=== PATIENT | female | born 1945 | race Caucasian/White ===

== ENCOUNTER 2016-12-08 08:31 | Emergency (ER) | payer BC ==
[~2016-12-08] VITALS: Ht 157.5 cm; Wt 78.2 kg
[2016-12-08 08:33] VITALS: TEMP 36.5; Ht 157.5 cm; Wt 78.2 kg
[2016-12-08] MEDS ORDERED: KETOROLAC TROMETHAMINE 30 MG/ML VIAL IV STA (08:58)
[2016-12-08 09:18] LABS: BASO % 0.8 %; BASO ABS # 0.05 K/uL (0-0.2); COMPLETE YES; EOS % 3.6 %; HEMATOCRIT 42.6 % (37-47); LYMPH % 25.2 %; LYMPH ABS # 1.56 K/uL (1.2-3.4); MEAN CELL VOLUME 90.8 fL (80-100); MEAN CORPUSCULAR HEMOGLOBIN 30.7 pg (25-34); MEAN CORPUSCULAR HGB CONC 33.8 g/dl (32-36); MEAN PLATELET VOLUME 10.4 fL (7.4-10.4); NEUT % 63.4 %; PLATELET COUNT 213 K/uL (130-400); RED BLOOD COUNT 4.69 M/uL (4.2-5.4); WHITE BLOOD COUNT 6.18 K/uL (4.8-10.8)
[2016-12-08 09:39] LABS: BUN/CREATININE RATIO 15.2 (10-20); CALCIUM 9.5 mg/dl (8.5-10.1); CREATININE 0.88 mg/dl (0.60-1.20); POTASSIUM 4.5 mmol/L (3.5-5.1)
--- NOTE | 2016-12-08 09:47 | DIAGNOSTIC IMAGING REPORT ---
TWO VIEW CHEST CLINICAL HISTORY: Chronic cough. FINDINGS: PA and lateral chest radiographs are obtained. No prior studies are available for comparison at the time of dictation. The cardiomediastinal silhouette is unremarkable. The lungs and pleural spaces are clear. There is no pneumothorax. The skeletal structures are osteopenic. The bony thorax appears intact. Calcified gallstones are seen in the right upper quadrant. IMPRESSION: 1. No active disease in the chest. 2. Cholelithiasis. Electronically signed by: Yaya Chi M.D. 12/08/2016 9:45 AM Dictated Date/Time: 12/08/2016 9:44 AM
[2016-12-08] MEDS ORDERED: MoRPHine SULFATE 10 MG/ML CARP/VIAL IV STA (10:01)
[2016-12-08] MEDS ORDERED: ONDANSETRON INJ 2 MG/ML 2 ML VIAL IV STA (10:01)
--- NOTE | 2016-12-08 10:45 | DIAGNOSTIC IMAGING REPORT ---
ULTRASOUND RIGHT UPPER QUADRANT ABDOMEN CLINICAL HISTORY: Right upper quadrant abdominal pain. COMPARISON STUDY: No priors. TECHNIQUE: Real-time, grayscale, and color flow sonography of the right upper quadrant of the abdomen was performed. Images are reviewed in the transverse and longitudinal planes. FINDINGS: Liver: The liver is normal in size and echotexture. There is no intrahepatic biliary ductal dilatation. The main portal vein is patent. Gallbladder: There are calcified shadowing gallstones which measure up to 1.5 cm. There is no gallbladder wall thickening or pericholecystic fluid. A sonographic Lee's sign is reportedly absent. The common bile duct measures up to 0.4 cm in diameter. Pancreas: Visualized portions of the pancreatic head and body are normal in appearance. The splenic vein is patent. Right kidney: Survey images of the right kidney demonstrate mild cortical atrophy.. There is no hydronephrosis. Ascites: None. IMPRESSION: Cholelithiasis without sonographic evidence of acute cholecystitis. Electronically signed by: Yaya Chi M.D. 12/08/2016 10:43 AM Dictated Date/Time: 12/08/2016 10:42 AM
[2016-12-08] MEDS ORDERED: HYDR-5688 PO (11:05)
[2016-12-08] MEDS ORDERED: ONDA4TAB10 SL (11:05)
--- NOTE | 2016-12-08 11:07 | EMERGENCY ROOM VISIT NOTE ---
History First contact with patient: 08:52 Chief Complaint: BACK PAIN Stated Complaint: PAIN FROM UPPERBACK TO RIBS History of Present Illness The patient is a 71 year old female who presents to the Emergency Room with complaints of right upper quadrant pain which radiates around to her back and up to her shoulder blade. She states the pain started yesterday. The patient denies any nausea vomiting or diarrhea. The patient also admits that she has been coughing for the past several months. She has a history of pneumonia in the past. She has not had a fever, head congestion, ear pain, sore throat. The patient denies any pain in the anterior chest or any shortness of breath. The patient does not smoke. She is not on any hormones. The patient does not have any history of clotting disorder. The patient denies any recent travel or any recent leg pain. Review of Systems 10 system review was performed and was negative unless stated otherwise history of present illness. Past Medical/Surgical History Pneumonia, 2 C-sections Social History Smoking Status: Never Smoker Smokeless Tobacco Use: No Alcohol Use: none Drug Use: none Marital Status: Housing Status: lives with family Occupation Status: retired Current/Historical Medications No Active Prescriptions or Reported Meds Allergies Coded Allergies: Sulfamethoxazole w/Trimethoprim (Unverified Allergy, Unknown, "MADE ME VERY SICK LIKE HIGH FEVER", 12/08/16) Physical Exam Vital Signs Date Time Temp Pulse Resp B/P Pulse Ox O2 Delivery O2 Flow Rate FiO2 12/08/16 10:10 61 20 140/64 99 Room Air 12/08/16 08:33 36.5 80 18 179/91 99 Room Air Physical Exam GENERAL: 71-year-old white female appears in no acute distress. MENTAL Status: Alert and oriented 3. EARS: Canals clear. TMs good light reflex. NOSE: Nasal mucosa without erythema or engorgement. PHARYNX: No erythema or edema noted. Airway is adequate NECK: Supple, no lymphadenopathy noted. No carotid bruits noted. LUNGS: Clear auscultation without wheezes rales or rhonchi. CARDIAC: Regular rate and rhythm without murmur. Pulses is full and equal throughout. CHEST WALL: Nontender to palpation throughout. BACK: No CVA tenderness noted. ABDOMEN: Positive bowel sounds all 4 quadrants. Soft, mild tenderness palpation in the right upper quadrant otherwise nontender without organomegaly or masses. EXTREMITIES: No cyanosis or edema noted. Nontender. No Palpable Cords. Negative Homans Bilaterally. Medical Decision & Procedures ER Provider Diagnostic Interpretation: TWO VIEW CHEST CLINICAL HISTORY: Chronic cough. FINDINGS: PA and lateral chest radiographs are obtained. No prior studies are available for comparison at the time of dictation. The cardiomediastinal silhouette is unremarkable. The lungs and pleural spaces are clear. There is no pneumothorax. The skeletal structures are osteopenic. The bony thorax appears intact. Calcified gallstones are seen in the right upper quadrant. IMPRESSION: 1. No active disease in the chest. 2. Cholelithiasis. Electronically signed by: Yaya Chi M.D. 12/08/2016 9:45 AM ULTRASOUND RIGHT UPPER QUADRANT ABDOMEN CLINICAL HISTORY: Right upper quadrant abdominal pain. COMPARISON STUDY: No priors. TECHNIQUE: Real-time, grayscale, and color flow sonography of the right upper quadrant of the abdomen was performed. Images are reviewed in the transverse and longitudinal planes. FINDINGS: Liver: The liver is normal in size and echotexture. There is no intrahepatic biliary ductal dilatation. The main portal vein is patent. Gallbladder: There are calcified shadowing gallstones which measure up to 1.5 cm. There is no gallbladder wall thickening or pericholecystic fluid. A sonographic Lee's sign is reportedly absent. The common bile duct measures up to 0.4 cm in diameter. Pancreas: Visualized portions of the pancreatic head and body are normal in appearance. The splenic vein is patent. Right kidney: Survey images of the right kidney demonstrate mild cortical atrophy.. There is no hydronephrosis. Ascites: None. IMPRESSION: Cholelithiasis without sonographic evidence of acute cholecystitis. Electronically signed by: Yaya Chi M.D. 12/08/2016 10:43 AM Dictated Date/Time: 12/08/2016 10:42 AM Laboratory Results 12/08/16 09:05 Red Blood Count 4.69, Mean Corpuscular Volume 90.8, Mean Corpuscular Hemoglobin 30.7, Mean Corpuscular Hemoglobin Concent 33.8, Mean Platelet Volume 10.4, Neutrophils (%) (Auto) 63.4, Lymphocytes (%) (Auto) 25.2, Monocytes (%) (Auto) 7.0, Eosinophils (%) (Auto) 3.6, Basophils (%) (Auto) 0.8, Neutrophils # (Auto) 3.92, Lymphocytes # (Auto) 1.56, Monocytes # (Auto) 0.43, Eosinophils # (Auto) 0.22, Basophils # (Auto) 0.05 12/08/16 09:05 Test 12/08/16 09:05 White Blood Count 6.18 K/uL (4.8-10.8) Red Blood Count 4.69 M/uL (4.2-5.4) Hemoglobin 14.4 g/dL (12.0-16.0) Hematocrit 42.6 % (37-47) Mean Corpuscular Volume 90.8 fL (80-100) Mean Corpuscular Hemoglobin 30.7 pg (25-34) Mean Corpuscular Hemoglobin Concent 33.8 g/dl (32-36) Platelet Count 213 K/uL (130-400) Mean Platelet Volume 10.4 fL (7.4-10.4) Neutrophils (%) (Auto) 63.4 % Lymphocytes (%) (Auto) 25.2 % Monocytes (%) (Auto) 7.0 % Eosinophils (%) (Auto) 3.6 % Basophils (%) (Auto) 0.8 % Neutrophils # (Auto) 3.92 K/uL (1.4-6.5) Lymphocytes # (Auto) 1.56 K/uL (1.2-3.4) Monocytes # (Auto) 0.43 K/uL (0.11-0.59) Eosinophils # (Auto) 0.22 K/uL (0-0.5) Basophils # (Auto) 0.05 K/uL (0-0.2) RDW Standard Deviation 45.0 fL (36.4-46.3) RDW Coefficient of Variation 13.7 % (11.5-14.5) Immature Granulocyte % (Auto) 0.0 % Immature Granulocyte # (Auto) 0.00 K/uL (0.00-0.02) Anion Gap 10.0 mmol/L (3-11) Est Creatinine Clear Calc Drug Dose 58.4 ml/min Estimated GFR () 77.7 Estimated GFR (Non- 67.0 BUN/Creatinine Ratio 15.2 (10-20) Calcium Level 9.5 mg/dl (8.5-10.1) Total Bilirubin 0.6 mg/dl (0.2-1) Direct Bilirubin 0.1 mg/dl (0-0.2) Aspartate Amino Transf (AST/SGOT) 20 U/L (15-37) Alanine Aminotransferase (ALT/SGPT) 27 U/L (12-78) Alkaline Phosphatase 66 U/L (45-117) Total Protein 7.5 gm/dl (6.4-8.2) Albumin 3.7 gm/dl (3.4-5.0) Lipase 102 U/L (73-393) Medications Administered Medications (Trade) Dose Ordered Sig/Bull Route Start Time Stop Time Status Last Admin Dose Admin Ketorolac Tromethamine (Toradol Inj) 30 mg NOW STAT IV 12/08/16 08:58 12/08/16 09:01 DC 12/08/16 09:11 30 MG Morphine Sulfate (MoRPHine SULFATE INJ) 6 mg NOW STAT IV 12/08/16 10:01 12/08/16 10:03 DC 12/08/16 10:13 6 MG Ondansetron HCl (Zofran Inj) 4 mg NOW STAT IV 12/08/16 10:01 12/08/16 10:03 DC 12/08/16 10:13 4 MG ED Course The patient was evaluated. IV access was obtained. The patient was given Toradol 30 mg IV for pain. CBC and differential, renal profile, LFTs and lipase levels were ordered. Labs are reviewed and were unremarkable. Chest x- ray was ordered and interpreted by the radiologist and myself as above without any acute findings. Ultrasound of the gallbladder was ordered and interpreted by the radiologist as above with findings consistent with cholelithiasis without acute cholecystitis. The patient was informed of all findings she was reevaluated and was feeling better. The patient was independently evaluated by Dr. Vuong who agreed with treatment plan. The patient was discharged home in stable condition.. Medical Decision Differential diagnosis include pneumonia, bronchitis, pleurisy, PE, acute cholecystitis, cholelithiasis Impression Primary Impression: Cholelithiasis Additional Impression: Right upper quadrant pain Departure Information Dispostion Home / Self-Care Condition GOOD Prescriptions Ondasetron Odt (ZOFRAN ODT) 4 Mg Tab 4 MG SL Q6H for Nausea, #10 TAB Prov: Johana Carrasco, MARCE 12/08/16 Hydrocodone/Acetaminophen 5MG/325MG ([place] 5MG/325MG) Tab 1-2 TABLET PO Q6 Y for Pain, #20 TAB For Initial Treatment Prov: Johana Carrasco PA-C 12/08/16 Referrals Yaya Ho M.D. (PCP) Forms HOME CARE DOCUMENTATION FORM, IMPORTANT VISIT INFORMATION Patient Instructions [facility] Additional Instructions If you experience any severe abdominal pain, uncontrolled nausea vomiting, fever return to ER immediately. Ibuprofen 600 mg every 6 hours with food for pain. Take [place] as needed for more severe pain. Do not drive while taking the [place]. Take Zofran as needed for nausea. Follow-up with your family physician for referral to surgery for consult. Problem Qualifiers
[2016-12-08 11:14] VITALS: BP 171/71; PULSE 58; O2SAT 98
--- NOTE | 2016-12-08 15:47 | EMERGENCY ROOM VISIT NOTE ---
ED Visit Note First contact with patient: 08:52 71 yr old female arrives with acute RUQ/flank pain which has resolved by my evaluation. I have personally evaluated and examined this patient. I agree with assessment and plan of Micki Carrasco PA-C. Would suspect GB related though passed kidney stone possibility. No SOB nor chest pain and with no tachycardia nor PE risk factors she does not require CT PE nor dimer at this time. No evidence of dissection.
[2017-03-05] MEDS ORDERED: MULT-506 PO (09:47)
[2017-03-05] MEDS ORDERED: CALC-51 PO (09:47)
[2017-03-05] MEDS ORDERED: BIOFTAB23 PO (09:47)
[2017-08-02] MEDS ORDERED: TRMCR515 TOP (10:37)
[2017-08-02] MEDS ORDERED: ASCO1CAP3 PO (10:38)
== END 2016-12-08 11:17 | disposition home or self-care (01) ==
LOC: C.EDB 08:33
DX: K80.20 Calculus of gallbladder without cholecystitis without obstruction (principal)

== ENCOUNTER → 2016-12-17 | Outpatient (CLI) | payer BC ==
[~2016-12-17] MED LIST: ASCO1CAP3 PO; BIOFTAB23 PO; CALC-51 PO; HYDR-5688 PO; MULT-506 PO; ONDA4TAB10 SL; TRMCR515 TOP
== END | disposition home or self-care (01) ==
LOC: C.PATHSPEC 16:25
PROVIDERS: ATTEND Obstetrics & Gynecology
DX: N95.0 Postmenopausal bleeding (principal); C54.1 Malignant neoplasm of endometrium

== ENCOUNTER → 2016-12-18 | Outpatient (CLI) | payer BC ==
--- NOTE | 2016-12-18 13:56 | DIAGNOSTIC IMAGING REPORT ---
NUCLEAR MEDICINE HEPATOBILIARY SCAN HISTORY: Pain. Nausea. R10.11 Abdominal pain, acute, right upper quadrant COMPARISON: None. TECHNIQUE: Immediately following the intravenous administration of 5.5 mCi Tc-99m Choletec, dynamic anterior abdominal imaging was performed. FINDINGS: Uniform hepatic tracer accumulation is shown. Prompt intrahepatic biliary excretion is seen. The gallbladder, common bile duct, and small bowel are all visualized by 20 minutes. This appearance represents the normal sequence of biliary excretion. IMPRESSION: No evidence for cystic duct obstruction. Normal study Electronically signed by: Miguel Carrasco M.D. 12/18/2016 1:55 PM Dictated Date/Time: 12/18/2016 1:54 PM
== END | disposition home or self-care (01) ==
LOC: C.NUCL 12:13
PROVIDERS: ATTEND Family Medicine
DX: R10.11 Right upper quadrant pain (principal)

== ENCOUNTER → 2017-01-24 | Outpatient (CLI) | payer BC ==
[2017-01-24 14:09] LABS: CHOLESTEROL/HDL RATIO 3.9
== END | disposition home or self-care (01) ==
LOC: C.LABMFLN 07:54
PROVIDERS: ATTEND Family Medicine
DX: E78.00 Pure hypercholesterolemia, unspecified (principal); R63.5 Abnormal weight gain

== ENCOUNTER → 2017-04-30 | Outpatient (CLI) | payer BC ==
[~2017-04-30] MED LIST changes: -ONDA4TAB10 SL
--- NOTE | 2017-04-30 15:51 | Radiation Oncology Follow-Up ---
Radiation Oncology Follow-Up Date of Visit Apr 30, 2017. (Anjana Edmondson PA-C) Reason For Visit One-month follow-up and cancer survivorship care plan (Anjana Edmondson PA-C) Radiation Completion Date Vag HDR x 5 03/25/17 (Anjana Edmondson PA-C) Diagnosis (1) Endometrial adenocarcinoma Status: Resolved Onset Date: 12/17/2016 Stage: l (FIGO IB, grade 1) Permanent Comment: Menopause at age 54 Postmenopausal vaginal bleeding November 2016 Status post ultrasound followed by endometrial biopsy 12/17/2016 (Dr. Marianela Esparza) Endometrioid adenocarcinoma, FIGO grade 1 of 3 Status post robotic-assisted laparoscopic hysterectomy; bilateral salpingo- oophorectomy; bilateral pelvic lymphadenectomy; bilateral periaortic lymph node sampling 01/10/2017 (Dr. Stefan Fregoso) Staged pT1b pN0 Stage IB Status post completion of radiation therapy 03/25/2017. She received 3000 cGy. 5 HDR treatments. Last Edited By: Anjana Edmondson on March 29, 2017 09:32 ( Anjana Edmondson PA-C) History of Present Illness Ms. Bassett is a 71-year-old female who presented with postmenopausal bleeding in November 2016. The patient was seen by Dr. Marianela Esparza from gynecology. The patient did have a pelvic ultrasound which did show a thickened endometrial stripe of 13 mm. The patient did have a endometrial biopsy completed on 2016 which revealed endometrioid adenocarcinoma FIGO grade 1. The patient was referred to Dr. Stefan Fregoso who recommended a total abdominal hysterectomy and bilateral salpingo-oophorectomy with pelvic lymph node sampling. The patient underwent a JAMES/BSO on 01/10/2017 which revealed FIGO grade 1 endometrioid adenocarcinoma with no evidence of lymphovascular space invasion. The tumor measured 2 cm in the greatest dimension and it invaded 7/10 mm of the myometrium making it stage FIGO IB. Pathology revealed no evidence of cervical stromal invasion, involvement of the fallopian tubes or ovaries. 13 pelvic lymph nodes were examined and all of them were negative. Genetic testing from the pathology specimen revealed loss of nuclear expression for MLH1 and PMS2 however MSH2/MSH6 were intact. Dr. Fregoso has recommended consideration of adjuvant radiation therapy. We are now seeing the patient in consultation. Overall, the patient is doing relatively well. She does have some vaginal discharge but no vaginal bleeding. She has no significant discomfort. She did well with surgery overall. She has no complaints. She underwent treatment with 5 HDR treatments. These were 600 cGy each. Total 3000 cGy. Treatment completed 03/25/2017. (Anjana Edmondson PA-C) Interim History She's been doing well over this past month. She denies any vaginal discharge or irritation. She's had no change in bowel habits or urination. She has had follow-up examinations by Dr. Fregoso. She wants to get back to exercising on a regular basis. She is a member of [employer]. She requested to return to full exercise capacity at their program. She is not using the vaginal dilator and she is currently not sexually active. She stated that her had treatment for prostate cancer and therefore they are no longer sexually active. (Anjana Edmondson PA-C) Allergies Coded Allergies: Sulfamethoxazole w/Trimethoprim (Unverified Allergy, Unknown, "MADE ME VERY SICK LIKE HIGH FEVER", 12/08/16) Home Medications Scheduled Bioflavonoid Products (Vitamin C Plus), 1 TAB PO DAILY Calcium Carbonate-Vitamin D (Calcium), 1 TAB PO HS Multivitamin (Multivitamin), 1 TAB PO DAILY Review of Systems Gastrointestinal: Symptoms: WNL Oral: Symptoms: No Problems Respiratory: Symptoms: WNL Urinary: Symptoms: WNL Skin: Symptoms: No Problems Additional Notes: She completed a distress management report and answered "no" to all questions. (Anjana Edmondson PA-C) Physical Exam Fatigue: None General Appearance: no apparent distress Eyes: normal inspection, EOMI ENT: normal ENT inspection, hearing grossly normal Neck: no adenopathy, thyroid normal Respiratory/Chest: lungs clear, no respiratory distress, no accessory muscle use Cardiovascular: regular rate, rhythm, no gallop, no murmur Abdomen: non tender, soft Genitourinary - Female: Performed by Dr. Lemos. There are mild post radiation changes at the apex. There is no telangiectasia. There are no palpable or visible lesions in the vagina. There is mild narrowing at the introitus. There is minimal foreshortening. There is no tenderness on the bimanual examination. (Anjana Edmondson PA-C) Assessment & Plan Plan: Continue regular follow-up with Dr. Fregoso as well as her family physician. She is going to be seeing Itzel Whitaker hotbed lever operator at Dr. Fregoso's office at her next visit. We discussed use of a vaginal dilator. She may need to use this if she is not sexually active. If physical examinations become more difficult this may need to be utilized. Today we completed a cancer survivorship care plan. A copy of the document was given to the patient. She understands that she will be followed with recheck examinations. She may cause she has any questions or concerns in the interim. (Anjana Edmondson PA-C) I agree with note created by Anjana Edmondson PA-C. I reviewed the patient's chart and information with her. I have examined and evaluated the patient. I reviewed relevant clinical information and answered the patient's and/or family' s questions. (Veeral. Lemos MD) Total Time In Follow-Up We spent 20 minutes speaking to the patient performing examination. I spent 15 minutes reviewing information in completing this note. (Anjana Edmondson PA-C) I spent 15 minutes examining and counseling the patient. (Veeral. Lemos MD) Copy To Yaya Ho M.D.; Stefan Fregoso M.D.; Marianela Esparza M.D.
== END | disposition home or self-care (01) ==
LOC: C.ONC 13:39
PROVIDERS: ATTEND Physician Assistant Medical
DX: Z08 Encounter for follow-up examination after completed treatment for malignant neoplasm (principal); Z92.3 Personal history of irradiation; Z85.42 Personal history of malignant neoplasm of other parts of uterus

== ENCOUNTER → 2017-08-02 | Outpatient (CLI) | payer BC | END | disposition home or self-care (01) | LOC: C.LABMFLN 08:13 | PROVIDERS: ATTEND Family Medicine | DX: E78.00 Pure hypercholesterolemia, unspecified (principal) ==

== ENCOUNTER 2017-08-22 06:18 | Day surgery (SDC) | payer BC ==
--- NOTE | 2017-08-02 10:52 | PAT Medication Instructions ---
Service Date Aug 02, 2017. Current Home Medication List Ascorbic Acid (Vitamin C), 1 TAB PO QAM Bioflavonoid Products (Vitamin C Plus), 1 TAB PO DAILY Calcium Carbonate-Vitamin D (Calcium), 1 TAB PO HS Multivitamin (Multivitamin), 1 TAB PO QAM Triamcinolone Acet (Triamcinolone Acetonide), 1 APPLN TOP DAILY PRN for Itching Medication Instructions For Your Scheduled Surgery - Hold the following medications 24 hours prior to surgery: Triamcinolone Acet (Triamcinolone Acetonide), 1 APPLN TOP DAILY PRN for Itching - Hold the following medications the morning of surgery: Ascorbic Acid (Vitamin C), 1 TAB PO QAM Multivitamin (Multivitamin), 1 TAB PO QAM Bioflavonoid Products (Vitamin C Plus), 1 TAB PO DAILY - Take the following medications as scheduled the night before surgery: Calcium Carbonate-Vitamin D (Calcium), 1 TAB PO HS NOTHING TO EAT OR DRINK AFTER MIDNIGHT If you have any questions please call us at [phone] or [phone] or [phone]
[~2017-08-22] VITALS: Ht 157.5 cm; Wt 75.7 kg
[~2017-08-22 06:18] MED LIST changes: +CEFAZOLIN 2000 MG/60 ML D5W IV SCH; +HEPARIN SOD 5000 UNIT/0.5 ML CARP SQ SCH; -HYDR-5688 PO; +LACTATED RINGER'S 1000ML 1,000 ML IV SCH
[2017-08-22 06:55] VITALS: BP 169/77; PULSE 65; TEMP 36.6; O2SAT 99; Ht 157.5 cm; Wt 75.7 kg
[2017-08-22] MEDS ORDERED: GLYCOPYRROLATE INJ 0.2 MG/ML VIAL ONE (07:38)
[2017-08-22] MEDS ORDERED: PROPOFOL IV EMULSION 10 MG/ML 20 ML VIAL IV ONE (07:38)
[2017-08-22] MEDS ORDERED: DEXAMETHASONE SOD INJ 4 MG/ML VIAL ONE (07:38)
[2017-08-22] MEDS ORDERED: LIDOCAINE HCL 2% 2 ML VIAL (20MG/ML) ONE (07:38)
[2017-08-22] MEDS ORDERED: ONDANSETRON INJ 2 MG/ML 2 ML VIAL ONE (07:38)
[2017-08-22] MEDS ORDERED: NEOSTIGMINE METHYLSULFATE 5 MG/5 ML SYR ONE (07:38)
[2017-08-22] MEDS ORDERED: MIDAZOLAM HCL 1 MG/ML 2ML VIAL ONE (07:40)
[2017-08-22] MEDS ORDERED: FENTANYL CITRATE INJ 50 MCG/1 ML 2 ML VIAL ONE ×2 (07:40)
[2017-08-22] MEDS ORDERED: BUPIVACAINE/EPINEPHRINE 0.5% MPF 1:200,000 30 ML VIAL ONE (07:55)
--- NOTE | 2017-08-22 08:15 | History & Physical Bridge Note ---
H&P Re-Evaluation Bridge Note: I have examined the patient, reviewed the History & Physical and in the interval since the performance of the History & Physical I have noted the following changes of clinical significance: No changes noted
[2017-08-22 08:21] LABS: BASO % 0.5 %; BASO ABS # 0.03 K/uL (0-0.2); EOS % 5.1 %; HEMATOCRIT 41.5 % (37-47); IG% 0.4 %; LYMPH % 27.4 %; LYMPH ABS # 1.51 K/uL (1.2-3.4); MEAN CORPUSCULAR HEMOGLOBIN 31.1 pg (25-34); MEAN PLATELET VOLUME 10.3 fL (7.4-10.4); NEUT % 56.6 %; PLATELET COUNT 172 K/uL (130-400); RED BLOOD COUNT 4.56 M/uL (4.2-5.4); WHITE BLOOD COUNT 5.52 K/uL (4.8-10.8)
[2017-08-22 08:24] LABS: COMPLETE YES; MEAN CORPUSCULAR HGB CONC 34.2 g/dl (32-36)
[2017-08-22 08:30] LABS: CALCIUM 9.3 mg/dl (8.5-10.1); CREATININE 0.8 mg/dl (0.60-1.20); POTASSIUM 4.4 mmol/L (3.5-5.1)
[2017-08-22] MEDS ORDERED: PHENYLEPHRINE 100MCG/ML 5ML SYR IV PRN (08:30)
[2017-08-22] MEDS ORDERED: LABETALOL HCL IV 5 MG/ML 20ML IV PRN (08:30)
[2017-08-22] MEDS ORDERED: FLUMAZENIL 0.1 MG/1 ML 10 ML VIAL IV PRN (08:30)
[2017-08-22] MEDS ORDERED: ONDANSETRON INJ 2 MG/ML 2 ML VIAL IV PRN ×2 (08:30→09:45)
[2017-08-22] MEDS ORDERED: ATROPINE SULFATE 0.1 MG/ML 5ML SYR IV PRN (08:30)
[2017-08-22] MEDS ORDERED: HYDROmorphone INJ 2 MG/ML SYR/VIAL IV PRN (08:30)
[2017-08-22] MEDS ORDERED: MEPERIDINE HCL 25 MG/ML CARP IV PRN (08:30)
[2017-08-22] MEDS ORDERED: EpHEDrine SULFATE INJ 50 MG/ML AMP IV PRN (08:30)
[2017-08-22] MEDS ORDERED: NALOXONE HCL 0.4 MG/1 ML VIAL/CARP IV PRN (08:30)
[2017-08-22] MEDS ORDERED: FENTANYL CITRATE INJ 50 MCG/1 ML 2 ML VIAL IV PRN (08:30)
[2017-08-22] MEDS ORDERED: ROCURONIUM BROMIDE 10 MG/ML 5 ML VIAL IV ONE (08:40)
[2017-08-22] MEDS ORDERED: SODIUM CHLORIDE 0.9% 1000ML 1,000 ML IV SCH (09:36)
--- NOTE | 2017-08-22 09:43 | [facility] Operative Report ---
Operative Report Operative Date Aug 22, 2017. Pre-Operative Diagnosis Chronic Cholecystitis, Cholelithiasis. Post-Operative Diagnosis Chronic Cholecystitis, Cholelithiasis. Procedure(s) Performed Laparoscopic Cholecystectomy Surgeon Retail Management Keyholder Surgeon(s) None Estimated Blood Loss 20 ml Findings essentially normal anatomy Specimens A. Gallbladder Anesthesia get Complication(s) None Disposition Recovery Room / PACU Description of Procedure After informed consent was obtained the patient was taken to the operating room and placed in the supine position. After successful intubation the abdomen was sterilely prepped and draped in usual fashion. A supraumbilical incision through her old scar line was made with an 11 blade scalpel and carried down through the soft tissue using electrocautery. The anterior rectus fascia was opened using electrocautery and 2 #0 Vicryl stay sutures were placed. Peritoneum was entered using blunt finger penetration and a finger sweep was performed. A 12 mm Patel trocar was placed and the abdomen was insufflated 18 mmHg. A Laparoscope was inserted and the abdomen was examined in 360 showing no gross abnormalities. A subxiphoid 5 mm port and 2 right upper quadrant 5 mm ports were placed under direct vision. The patient was then placed into a Trendelenburg position and slightly airplaned to the left. The gallbladder was grasped and elevated superiorly and laterally. A [place] dissector was used to take down adhesions around the neck of the gallbladder. The cystic duct was readily identified and skeletonized. 2 clips were placed proximally and one distally and it was transected. In similar fashion the cystic artery was identified and skeletonized clipped and divided as well. A small posterior branch was also seen which was clipped and divided additionally. Electrocautery was then used to remove the gallbladder from the gallbladder fossa. There was a small hole made in the gallbladder during this process releasing a small amount of bile into the right upper quadrant. Soon as I removed the gallbladder it was placed into an Endo Catch bag. The right upper quadrant was thoroughly irrigated until all the irrigant was clear. There were several small bleeding points on the gallbladder fossa which were controlled using electrocautery as well. A final irrigation was performed. We looked under the left lobe liver as well as around the abdomen a final time. The gallbladder was removed as well as all the trochars. The abdomen was desufflated. The fascia of the camera port was closed using 0 Vicryl figure-of- eight fashion. All of the wounds were irrigated and closed using 4-0 Monocryl. Marcaine was injected around him for postoperative analgesia and skin glue used as a dressing. Patient was awaken extubated and transferred recovery in stable condition I attest to the content of the Intraoperative Record and any orders documented therein. Any exceptions are noted below.
[2017-08-22] MEDS ORDERED: IBUPROFEN 600 MG TAB PO PRN (09:45)
[2017-08-22] MEDS ORDERED: HYDROCODONE/ACETAMOPHEN 5/325MG TAB PO PRN ×2 (09:45)
--- NOTE | 2017-08-22 10:03 | Anesthesiology Progress Note ---
Anesthesia Post Op Note Date & Time Aug 22, 2017 at 10:03 Vital Signs Pain Intensity: 0 Vital Signs Past 12 Hours Date Time Temp Pulse Resp B/P (MAP) Pulse Ox O2 Delivery O2 Flow Rate FiO2 08/22/17 09:55 60 18 164/88 100 Nasal Cannula 2 08/22/17 09:45 66 18 142/77 100 Nasal Cannula 2 08/22/17 09:35 66 18 173/78 100 Oxymask 5 08/22/17 09:29 36.5 70 16 175/99 100 Oxymask 10 08/22/17 06:55 36.6 65 18 169/77 (107) 99 Room Air Notes Mental Status: alert / awake / arousable, participated in evaluation Pt Amnestic to Procedure: Yes Nausea / Vomiting: adequately controlled Pain: adequately controlled Airway Patency, RR, SpO2: stable & adequate BP & HR: stable & adequate Hydration State: stable & adequate Anesthetic Complications: no major complications apparent
[2017-08-22] MEDS ORDERED: HYDR-5688 PO (10:53)
--- NOTE | 2017-08-22 10:56 | Discharge Instructions ---
Discharge Instructions Date of Service Aug 22, 2017. Admission Reason for Admission: Gallstones, Acute Right Upper Quadrant Abdominal P Discharge Discharge Diagnosis / Problem: gallstones Discharge Goals Goal(s): Decrease discomfort Activity Recommendations Activity Limitations: as noted below Lifting Limitations: no more than 10 pounds Exercise/Sports Limitations: until after follow-up appointment May Resume Sexual Activity: after follow-up appointment Shower/Bathe: tomorrow . Instructions / Follow-Up Instructions / Follow-Up call for f/u with Dr. Pichardo in 1-2 weeks of if you have any problems or questions ...[phone] Current Hospital Diet Patient's current hospital diet: Discharge Diet Recommended Diet: Regular Diet Procedures Procedures Performed: Laparoscopic Cholecystectomy Pending Studies Studies pending at discharge: yes List of pending studies: path report Laboratory Results Lipid Panel Test 08/02/17 08:23 Range/Units Triglycerides Level 133 0-150 mg/dl Cholesterol Level 226 H 0-200 mg/dl HDL Cholesterol 56 mg/dl Cholesterol/HDL Ratio 4.0 LDL Cholesterol, Calculated 143 mg/dl Medical Emergencies . Who to Call and When: Medical Emergencies: If at any time you feel your situation is an emergency, please call 911 immediately. . Non-Emergent Contact Non-Emergency issues call your: Primary Care Provider, Surgeon Call Non-Emergent contact if: temperature is above 101, wound has increased drainage, wound has increased redness, wound has increased pain . "Provider Documentation" section prepared by Anmol Pichardo. . VTE Core Measure Inpt VTE Proph given/why not?: SCD's
[2017-08-22 11:08] VITALS: BP 150/72; PULSE 55; TEMP 36.2; O2SAT 98
== END 2017-08-22 11:26 | disposition home or self-care (01) ==
LOC: C.ACU 06:18
PROVIDERS: ATTEND Surgery
DX: K80.10 Calculus of gallbladder with chronic cholecystitis without obstruction (principal); E78.00 Pure hypercholesterolemia, unspecified; K21.9 Gastro-esophageal reflux disease without esophagitis; M15.0 Primary generalized (osteo)arthritis; Z79.899 Other long term (current) drug therapy

== ENCOUNTER → 2017-09-10 | Outpatient (CLI) | payer BC ==
[~2017-09-10] MED LIST changes: -CEFAZOLIN 2000 MG/60 ML D5W IV SCH; -HEPARIN SOD 5000 UNIT/0.5 ML CARP SQ SCH; +HYDR-5688 PO; -LACTATED RINGER'S 1000ML 1,000 ML IV SCH
--- NOTE | 2017-09-10 15:16 | MAMMOGRAPHY REPORT ---
BILATERAL DIGITAL SCREENING MAMMOGRAM WITH CAD: 09/10/2017 CLINICAL HISTORY: Routine screening examination. TECHNIQUE: Bilateral CC and MLO views were obtained. Current study was also evaluated with a Comput er Aided Detection (CAD) system. COMPARISON: Comparison is made to exams dated: 07/19/2016 mammogram, 06/29/2015 mammogram, and 4 mammogram - [facility]. BREAST COMPOSITION: The tissue of both breasts is almost entirely fatty. FINDINGS: No suspicious mass, architectural distortion or cluster of microcalcifications is seen. IMPRESSION: ACR BI-RADS CATEGORY 1: NEGATIVE There is no mammographic evidence of malignancy. A 1 year screening mammogram is recommended. The pa tient will receive written notification of the results. Approximately 10% of breast cancers are not detected with mammography. A negative mammographic report should not delay biopsy if a clinically suggestive mass is present. Modesta Mayorga M.D. ay/:09/10/2017 13:33:46 Manager Care: Allison WRIGHT(R)(M), [facility] letter sent: Normal 1/2 BI-RADS Code: ACR BI-RADS Category 1: Negative
== END | disposition home or self-care (01) ==
LOC: C.MAMM 12:09
PROVIDERS: ATTEND Family Medicine
DX: Z12.31 Encounter for screening mammogram for malignant neoplasm of breast (principal)

== ENCOUNTER → 2017-10-31 | Outpatient (CLI) | payer BC ==
[2017-10-31 13:38] VITALS: BP 136/83; PULSE 79; TEMP 36.7; O2SAT 97
--- NOTE | 2017-10-31 16:32 | Radiation Oncology Follow-Up ---
Radiation Oncology Follow-Up Date of Visit Oct 31, 2017. Reason For Visit 6 month follow-up Radiation Completion Date had 3 HDR treatments , finished 03-25-2017 Diagnosis (1) Endometrial adenocarcinoma Status: Resolved Onset Date: 12/17/2016 Stage: l (FIGO 1B, grade 1) Permanent Comment: Menopause at age 54 Postmenopausal vaginal bleeding November 2016 Status post ultrasound followed by endometrial biopsy 12/17/2016 (Dr. Marianela Esparza) Endometrioid adenocarcinoma, FIGO grade 1 of 3 Status post robotic-assisted laparoscopic hysterectomy; bilateral salpingo- oophorectomy; bilateral pelvic lymphadenectomy; bilateral periaortic lymph node sampling 01/10/2017 (Dr. Stefan Fregoso) Staged pT1b pN0 Stage IB Status post completion of radiation therapy 03/25/2017. She received 3000 cGy. 5 HDR treatments. Last Edited By: Anjana Edmondson on March 29, 2017 09:32 History of Present Illness manpreet Bassett is a 71-year-old female who presented with postmenopausal bleeding in November 2016. The patient was seen by Dr. Marianela Esparza from gynecology. The patient did have a pelvic ultrasound which did show a thickened endometrial stripe of 13 mm. The patient did have a endometrial biopsy completed on 2016 which revealed endometrioid adenocarcinoma FIGO grade 1. The patient was referred to Dr. Stefan Fregoso who recommended a total abdominal hysterectomy and bilateral salpingo-oophorectomy with pelvic lymph node sampling. The patient underwent a JAMES/BSO on 01/10/2017 which revealed FIGO grade 1 endometrioid adenocarcinoma with no evidence of lymphovascular space invasion. The tumor measured 2 cm in the greatest dimension and it invaded 7/10 mm of the myometrium making it stage FIGO IB. Pathology revealed no evidence of cervical stromal invasion, involvement of the fallopian tubes or ovaries. 13 pelvic lymph nodes were examined and all of them were negative. Genetic testing from the pathology specimen revealed loss of nuclear expression for MLH1 and PMS2 however MSH2/MSH6 were intact. Dr. Fregoso has recommended consideration of adjuvant radiation therapy. We are now seeing the patient in consultation. Overall, the patient is doing relatively well. She does have some vaginal discharge but no vaginal bleeding. She has no significant discomfort. She did well with surgery overall. She has no complaints. She underwent treatment with 5 HDR treatments. These were 600 cGy each. Total 3000 cGy. Treatment completed 03/25/2017. Interim History She has been doing well over the past 6 months. She denies any vaginal discharge. She has occasional bleeding only after an examination. She denies any pain. There is been no change in urination or bowel habits. She denies any abdominal pressure or pelvic pain. She has seen her local blocker and polisher gold wheel as well as Dr. Fregoso. Follow-up examinations have shown no recurrence. She is not use the vaginal dilator. There is been no mention of any difficulty with physical examination. Allergies Coded Allergies: Sulfamethoxazole w/Trimethoprim (Verified Allergy, Intermediate, FEBRILE,N /V, 08/22/17) Home Medications Scheduled Ascorbic Acid (Vitamin C), 1 TAB PO QAM Calcium Carbonate-Vitamin D (Calcium), 1 TAB PO HS Multivitamin (Multivitamin), 1 TAB PO QAM Scheduled PRN Triamcinolone Acet (Triamcinolone Acetonide), 1 APPLN TOP DAILY PRN for Itching Review of Systems Gastrointestinal: Symptoms: WNL Oral: Symptoms: No Problems Respiratory: Symptoms: WNL Urinary: Symptoms: Incontinence, Nocturia Comments: occ nocturia and occ stress incontinence Skin: Symptoms: No Problems Other Skin Symptoms: " Dry " Physical Exam Vital Signs Date Time Temp Pulse Resp B/P (MAP) Pulse Ox O2 Delivery O2 Flow Rate FiO2 10/31/17 13:38 36.7 79 16 136/83 97 Fatigue: None General Appearance: no apparent distress Eyes: normal inspection, EOMI ENT: normal ENT inspection, hearing grossly normal Respiratory/Chest: lungs clear, no respiratory distress, no accessory muscle use Cardiovascular: regular rate, rhythm, no gallop, no murmur Abdomen: non tender, soft, no organomegaly Genitourinary - Female: external genitalia normal, + pertinent finding (there is marked foreshortening of the vagina. There are no visible or palpable lesions. There is no vaginal discharge or bleeding. There is post radiation changes at the apex. There is no skin stenosis of the introitus. There is no tenderness to palpation.) Extremities: no pedal edema Neurologic/Psychiatric: no motor/sensory deficits, alert Skin: warm/dry Lymphatic: no adenopathy Pain Management Patient Reports Pain: No Side: Bilateral Patient Preferred Pain Scale: 0 - 10 Initial Pain Intensity: 0.0 Pain Management Plan She denies pain therefore requires no pain management. Laboratory Laboratory Results: not applicable Pathology Pathology Results: not applicable Imaging Imaging Studies: not applicable Assessment & Plan Plan: Continue follow-up with her local blocker and polisher gold wheel as well as Dr. Reynolds. She has an appointment for follow-up with Dr. Saha in approximately one month. We discussed that she is not showing any stenosis of the introitus. With the marked foreshortening of the vagina the vaginal dilator would not be of much benefit. She is therefore not going to use the dilator. She is no longer sexually active. We asked her to return to our office in 1 year. She may call if she has any questions or concerns in the interim. Total Time In Follow-Up I spent 20 minutes speaking to the patient and performing examination. I spent 15 minutes reviewing information in completing this note. Copy To Yaya Ho M.D.; Stefan Fregoso M.D.; Marianela Esparza M.D.
== END | disposition home or self-care (01) ==
LOC: C.ONC 13:23
PROVIDERS: ATTEND Physician Assistant Medical
DX: Z08 Encounter for follow-up examination after completed treatment for malignant neoplasm (principal); Z92.3 Personal history of irradiation; Z85.89 Personal history of malignant neoplasm of other organs and systems

== ENCOUNTER → 2018-01-30 | Outpatient (CLI) | payer BC ==
[~2018-01-30] MED LIST changes: -BIOFTAB23 PO; -HYDR-5688 PO
[2018-01-30 12:47] LABS: BASO % 0.6 %; BASO ABS # 0.04 K/uL (0-0.2); EOS % 4.8 %; EOS ABS # 0.31 K/uL (0-0.5); HEMATOCRIT 44.2 % (37-47); HEMOGLOBIN 14.5 g/dL (12.0-16.0); IG# 0.01 K/uL (0.00-0.02); LYMPH % 24.2 %; LYMPH ABS # 1.57 K/uL (1.2-3.4); MEAN CELL VOLUME 92.7 fL (80-100); MEAN CORPUSCULAR HEMOGLOBIN 30.4 pg (25-34); MEAN CORPUSCULAR HGB CONC 32.8 g/dl (32-36); MEAN PLATELET VOLUME 10.9 fL (7.4-10.4); MONO % 10.8 %; NEUT % 59.4 %; NEUT ABS # 3.86 K/uL (1.4-6.5); PLATELET COUNT 202 K/uL (130-400); RED CELL DISTRIBUTION WIDTH CV 13.9 % (11.5-14.5); RED CELL DISTRIBUTION WIDTH SD 47.4 fL (36.4-46.3); WHITE BLOOD COUNT 6.49 K/uL (4.8-10.8)
[2018-01-30 13:12] LABS: BLOOD UREA NITROGEN 15 mg/dl (7-18); CALCIUM 9.3 mg/dl (8.5-10.1); CARBON DIOXIDE 28 mmol/L (21-32); CHOLESTEROL 226 mg/dl (0-200); CREATININE 0.87 mg/dl (0.60-1.20); GLUCOSE 87 mg/dl (70-99); POTASSIUM 4.3 mmol/L (3.5-5.1); SODIUM 140 mmol/L (136-145)
[2018-01-30 13:16] LABS: LDL CHOLESTEROL CALCULATED 141 mg/dl
== END | disposition home or self-care (01) ==
LOC: C.LABMFLN 08:14
PROVIDERS: ATTEND Family Medicine
DX: Z01.818 Encounter for other preprocedural examination (principal); E78.00 Pure hypercholesterolemia, unspecified